=== PATIENT | male | born 1950 | race Two or more races ===

== ENCOUNTER 2020-02-25 08:11 | Outpatient (CLI) | payer OTHER ==
[2020-03-11] MEDS ORDERED: OMEPRAZOLE PO (09:30)
[2020-03-11] MEDS ORDERED: SYMBICORT 16010.2 GM IH (09:31)
[2020-03-11] MEDS ORDERED: GLIMEPIRIDE1 M1 PO (09:31)
== END 2020-02-25 08:21 | disposition home or self-care (01) ==
LOC: NUCLEAR 08:11
PROVIDERS: ATTEND Specialist
DX: K81.1 Chronic cholecystitis (principal)
CPT/HCPCS: 78227; A9537

== ENCOUNTER 2020-03-03 11:55 | Outpatient (CLI) | payer OTHER | END 2020-03-03 11:57 | disposition home or self-care (01) | LOC: RAD 11:55 | PROVIDERS: ATTEND Specialist | DX: J45.998 Other asthma (principal); E11.9 Type 2 diabetes mellitus without complications; K80.10 Calculus of gallbladder with chronic cholecystitis without obstruction ==

== ENCOUNTER 2020-03-08 07:10 | Outpatient (CLI) | payer OTHER ==
[2020-03-11] MEDS ORDERED: OMEPRAZOLE PO (09:30)
[2020-03-11] MEDS ORDERED: GLIMEPIRIDE1 M1 PO (09:31)
[2020-03-11] MEDS ORDERED: SYMBICORT 16010.2 GM IH (09:31)
== END 2020-03-08 07:16 | disposition home or self-care (01) ==
LOC: MRI 07:10
PROVIDERS: ATTEND Specialist
DX: K80.80 Other cholelithiasis without obstruction (principal); K80.10 Calculus of gallbladder with chronic cholecystitis without obstruction
CPT/HCPCS: 74181

== ENCOUNTER 2020-03-18 04:30 | Day surgery (SDC) | payer OTHER ==
[~2020-03-18 04:30] MED LIST: GLIMEPIRIDE1 M1 PO; OMEPRAZOLE PO; SYMBICORT 16010.2 GM IH
[2020-03-19] MEDS ORDERED: PRILOSEC OTC20 MG (11:58)
[2020-03-19] MEDS ORDERED: UROXATRAL10 MG (11:58)
== END 2020-03-18 18:20 | disposition home or self-care (01) ==
LOC: CIR.AMB 04:30
PROVIDERS: ATTEND Specialist
DX: K80.10 Calculus of gallbladder with chronic cholecystitis without obstruction (principal); Z20.828 Contact with and (suspected) exposure to other viral communicable diseases

== ENCOUNTER 2020-03-19 11:52 | Inpatient (IN) | payer OTHER ==
[~2020-03-19] VITALS: Ht 165.1 cm; Wt 80.3 kg
[2020-03-19] MEDS ORDERED: UROXATRAL10 MG (11:58)
[2020-03-19] MEDS ORDERED: PRILOSEC OTC20 MG (11:58)
[2020-03-22] MEDS ORDERED: OMEPRAZOLE40 MG PO (10:14)
== END 2020-04-09 15:29 | disposition home or self-care (01) | DRG 444 ==
LOC: EDBD 11:52 → ER 11:52 → SURG 13:05 → SURH 13:05 → SURG 03-22 19:52
PROVIDERS: ADMIT Specialist; ATTEND Specialist
PROC: BW24ZZZ Computerized Tomography (CT Scan) of Chest and Abdomen (ICD-10-PCS; principal; 2020-03-19)
PROC: 0FJB8ZZ Inspection of Hepatobiliary Duct, Via Natural or Artificial Opening Endoscopic (ICD-10-PCS; 2020-03-19)
PROC: 0FJD8ZZ Inspection of Pancreatic Duct, Via Natural or Artificial Opening Endoscopic (ICD-10-PCS; 2020-03-19)
PROC: 4A033R1 Measurement of Arterial Saturation, Peripheral, Percutaneous Approach (ICD-10-PCS; 2020-03-19)
PROC: BW21ZZZ Computerized Tomography (CT Scan) of Abdomen and Pelvis (ICD-10-PCS; 2020-03-23)
PROC: BF2 Imaging, Hepatobiliary System and Pancreas, Computerized Tomography (CT Scan) (ICD-10-PCS; 2020-03-23)
PROC: 0W9G30Z Drainage of Peritoneal Cavity with Drainage Device, Percutaneous Approach (ICD-10-PCS; 2020-03-23)
PROC: 0DJ08ZZ Inspection of Upper Intestinal Tract, Via Natural or Artificial Opening Endoscopic (ICD-10-PCS; 2020-03-25)
PROC: 0FJB8ZZ Inspection of Hepatobiliary Duct, Via Natural or Artificial Opening Endoscopic (ICD-10-PCS; 2020-03-26)
PROC: 0FJD8ZZ Inspection of Pancreatic Duct, Via Natural or Artificial Opening Endoscopic (ICD-10-PCS; 2020-03-26)
PROC: BF10YZZ Fluoroscopy of Bile Ducts using Other Contrast (ICD-10-PCS; 2020-03-27)
PROC: BW21ZZZ Computerized Tomography (CT Scan) of Abdomen and Pelvis (ICD-10-PCS; 2020-03-30)
PROC: 05HY33Z Insertion of Infusion Device into Upper Vein, Percutaneous Approach (ICD-10-PCS; 2020-04-03)
DX: K80.45 Calculus of bile duct with chronic cholecystitis with obstruction (principal); K65.1 Peritoneal abscess; T81.49XA Infection following a procedure, other surgical site, initial encounter; J98.11 Atelectasis; J90 Pleural effusion, not elsewhere classified; K91.89 Other postprocedural complications and disorders of digestive system; B96.5 Pseudomonas (aeruginosa) (mallei) (pseudomallei) as the cause of diseases classified elsewhere; B96.89 Other specified bacterial agents as the cause of diseases classified elsewhere; K66.8 Other specified disorders of peritoneum; Z20.828 Contact with and (suspected) exposure to other viral communicable diseases; E11.65 Type 2 diabetes mellitus with hyperglycemia; I10 Essential (primary) hypertension

== ENCOUNTER 2020-05-21 11:01 | Outpatient (CLI) | payer OTHER | END 2020-05-21 11:09 | disposition home or self-care (01) | LOC: LAB 11:01 | PROVIDERS: ATTEND Specialist | DX: Z01.812 Encounter for preprocedural laboratory examination (principal); K83.1 Obstruction of bile duct ==

== ENCOUNTER → 2020-05-21 | Outpatient (CLI) | payer OTHER ==
[~2020-05-21] MED LIST changes: +OMEPRAZOLE40 MG PO; +PRILOSEC OTC20 MG; +UROXATRAL10 MG
== END | disposition home or self-care (01) ==
LOC: RAD 09:33
PROVIDERS: ATTEND Specialist
DX: K83.1 Obstruction of bile duct (principal)

== ENCOUNTER → 2020-06-02 | Outpatient (CLI) | payer OTHER | END | disposition home or self-care (01) | LOC: NUCLEAR 12:38 | PROVIDERS: ATTEND Orthopaedic Surgery | DX: M81.0 Age-related osteoporosis without current pathological fracture (principal) ==

== ENCOUNTER 2020-06-07 08:31 | Outpatient (CLI) | payer OTHER | END 2020-06-07 08:41 | disposition home or self-care (01) | LOC: LAB 08:31 | PROVIDERS: ATTEND Radiology Vascular & Interventional Radiology | DX: K83.2 Perforation of bile duct (principal); K80.50 Calculus of bile duct without cholangitis or cholecystitis without obstruction ==

== ENCOUNTER 2020-07-25 08:02 | Emergency (ER) | payer OTHER ==
[~2020-07-25] VITALS: Ht 180.3 cm; Wt 77.1 kg
== END 2020-07-25 16:16 | disposition home or self-care (01) ==
LOC: ER 08:02
DX: R10.11 Right upper quadrant pain (principal); R10.12 Left upper quadrant pain; Z90.49 Acquired absence of other specified parts of digestive tract

== ENCOUNTER 2020-09-13 10:03 | Outpatient (CLI) | payer OTHER | END 2020-09-13 10:18 | disposition home or self-care (01) | LOC: RAD 10:03 | PROVIDERS: ATTEND Family Medicine | DX: R07.89 Other chest pain (principal); I70.0 Atherosclerosis of aorta ==

== ENCOUNTER → 2020-09-13 11:09 | Outpatient (CLI) | payer OTHER | END | disposition home or self-care (01) | LOC: LAB 11:09 | PROVIDERS: ATTEND Radiology Diagnostic Radiology | DX: R07.89 Other chest pain (principal); R19.00 Intra-abdominal and pelvic swelling, mass and lump, unspecified site ==

== ENCOUNTER 2020-09-24 08:15 | Outpatient (CLI) | payer OTHER | END 2020-09-24 08:36 | disposition home or self-care (01) | LOC: TOM 08:15 | PROVIDERS: ATTEND Specialist | DX: R19.00 Intra-abdominal and pelvic swelling, mass and lump, unspecified site (principal) | CPT/HCPCS: 74177; Q9965 ==

== ENCOUNTER 2021-01-03 09:20 | Outpatient (CLI) | payer OTHER | END 2021-01-03 09:35 | disposition home or self-care (01) | LOC: RAD 09:20 | PROVIDERS: ATTEND Family Medicine | DX: E04.1 Nontoxic single thyroid nodule (principal); R10.32 Left lower quadrant pain; M15.0 Primary generalized (osteo)arthritis ==

== ENCOUNTER 2022-06-20 04:50 | Day surgery (SDC) | payer OTHER ==
[~2022-06-20] VITALS: Ht 180.3 cm; Wt 95.3 kg
[~2022-06-20 04:50] MED LIST changes: +ACID REDUCER20 M1 PO
== END 2022-06-20 11:35 | disposition home or self-care (01) ==
LOC: CIR.AMB 04:50
PROVIDERS: ATTEND Specialist
DX: K43.2 Incisional hernia without obstruction or gangrene (principal); Z91.018 Allergy to other foods; R73.03 Prediabetes; Z79.84 Long term (current) use of oral hypoglycemic drugs; Z20.822 Contact with and (suspected) exposure to COVID-19

== ENCOUNTER 2023-01-25 07:16 | Day surgery (SDC) | payer OTHER ==
[2023-01-25] MEDS ORDERED: KETO10TA2 PO (10:10)
[2023-01-25] MEDS ORDERED: TRAMADOL HCL50 MG PO (10:10)
[2023-01-25] MEDS ORDERED: MIRALAX17 GM PO (10:10)
[2023-01-25] MEDS ORDERED: TYLENOL ARTHRI650 MG PO (10:10)
[2023-01-25] MEDS ORDERED: NEURONTIN300 MG PO (12:07)
== END 2023-01-25 17:30 | disposition home or self-care (01) ==
LOC: CIR.AMB 07:16
PROVIDERS: ATTEND Surgery
DX: K43.0 Incisional hernia with obstruction, without gangrene (principal); I10 Essential (primary) hypertension; Z20.822 Contact with and (suspected) exposure to COVID-19
CPT/HCPCS: 49616; C1781

== ENCOUNTER 2024-08-20 11:46 | Outpatient (CLI) | payer OTHER ==
[~2024-08-20 11:46] MED LIST changes: +KETO10TA2 PO; +MIRALAX17 GM PO; +NEURONTIN300 MG PO; +TRAMADOL HCL50 MG PO; +TYLENOL ARTHRI650 MG PO
== END 2024-08-20 11:51 | disposition home or self-care (01) ==
LOC: RAD 11:46
PROVIDERS: ATTEND Orthopaedic Surgery
DX: M25.571 Pain in right ankle and joints of right foot (principal)